=== PATIENT | male | born 1945 | race Caucasian/White ===

== ENCOUNTER 2019-01-02 10:21 | Inpatient (IN) ==
[2019-01-02] MEDS ORDERED: CeFAZolin Syr 3,000MG/30 ML 3,000 MG/30 ML SYRINGE IVPB ONE (10:46)
[2019-01-02] MEDS ORDERED: Albuterol 2.5 MG/3 ML NEBULIZER IH ONE ×2 (10:46→11:20)
[2019-01-02] MEDS ORDERED: Ringers Solution, Lactated 1,000 ML IVC SCH ×2 (11:00→15:28)
[2019-01-02] MEDS ORDERED: Acetaminophen IV 1,000 MG/100 ML INFUS..BTL IVPB ONE (11:20)
[2019-01-02] MEDS ORDERED: *HR* OxyCODONE Immed Rel 5 MG TABLET PO PRN ×2 (11:20→15:28)
[2019-01-02] MEDS ORDERED: *HR* Propofol 200 MG/20 ML VIAL IVP ONE (11:46)
[2019-01-02] MEDS ORDERED: Lidocaine -MPF 2% 2 ML VIAL ONE (11:47)
[2019-01-02] MEDS ORDERED: *HR* FentaNYL (PF) 100 MCG/2 ML VIAL ONE (11:47)
[2019-01-02] MEDS ORDERED: *HR* Midazolam HCl 2 MG/2 ML VIAL ONE (11:47)
[2019-01-02] MEDS ORDERED: *HR* Succinylcholine 200 MG/10 ML VIAL IVP ONE (12:06)
[2019-01-02] MEDS ORDERED: Ropivacaine/PF 0.5% 30 ML VIAL ONE (12:19)
[2019-01-02] MEDS ORDERED: Lidocaine -MPF 2% 5 ML VIAL ONE (12:19)
[2019-01-02] MEDS ORDERED: ROPIVACAINE/PF/NS 0.25% 1 EACH SYRINGE INTRAART ONE (12:19)
[2019-01-02] MEDS ORDERED: Ethanol\\Acetic Acid\\Na Ace\\Ben 1,000 ML IRRIG.SOLN IR ONE (12:41)
[2019-01-02] MEDS ORDERED: Dexamethasone 4 MG/ML VIAL ONE (13:25)
[2019-01-02] MEDS ORDERED: Ondansetron 4 MG/2 ML VIAL ONE (13:25)
[2019-01-02 14:44] LABS: Hematocrit 40.1 % (37.5-50.1); Hemoglobin 13.6 g/dL (12.9-16.9)
[2019-01-02] MEDS ORDERED: Ondansetron 4 MG/2 ML VIAL IVP PRN (15:28)
[2019-01-02] MEDS ORDERED: NON-FORMULARY MEDICATION 1 EACH EACH (Pirfenidone [Esbriet] 801 MG) PO SCH (15:28)
[2019-01-02] MEDS ORDERED: Artificial Tears SOLN 15 ML BOTTLE BOTH EYES PRN (15:28)
[2019-01-02] MEDS ORDERED: Naloxone 0.4 MG/ML INJ IVP PRN (15:28)
[2019-01-02] MEDS ORDERED: *HR* OxyCODONE/APAP 5/325 TABLET PO PRN (15:28)
[2019-01-02 18:00] VITALS: BP 154/80
[2019-01-02] MEDS ORDERED: ceFAZolin sodium 3,000 MG in 0.9 % Sodium Chloride 100 ML IVPB SCH (18:00)
[2019-01-02] MEDS ORDERED: *HR* Enoxaparin 30 MG/0.3 ML SYRINGE SQ SCH ×2 (18:00)
[2019-01-02] MEDS ORDERED: Famotidine 20 MG TABLET PO SCH (21:00)
[2019-01-02] MEDS ORDERED: NON-FORMULARY MEDICATION 1 EACH EACH (C,E,Zinc,Copper 11/Omega3s/Lut [Ocuvite Adult 50 Plu PO SCH (21:00)
[2019-01-02] MEDS ORDERED: Gabapentin 400 MG CAPSULE PO SCH (21:00)
[2019-01-02] MEDS ORDERED: MOM Conc 10 ML UD.LIQ PO PRN (21:00)
[2019-01-02] MEDS ORDERED: NON-FORMULARY MEDICATION 1 EACH EACH (Gabapentin [Neurontin] 600 MG) PO SCH (21:00)
[2019-01-02] MEDS ORDERED: *HR* Acetylcysteine 20% 600 MG/3 ML ORAL SYRINGE PO SCH (21:00)
[2019-01-02] MEDS ORDERED: Sennosides 8.6 MG TABLET PO PRN (21:00)
[2019-01-02] MEDS ORDERED: Temazepam 15 MG CAPSULE PO PRN (21:00)
[2019-01-03] MEDS ORDERED: tiZANidine 4 MG TABLET PO SCH (09:00)
[2019-01-03] MEDS ORDERED: Venlafaxine XR (24 HR) 75 MG CAP.ER.24H PO SCH (09:00)
[2019-01-03] MEDS ORDERED: NON-FORMULARY MEDICATION 1 EACH EACH (Ipratropium Bromide 1 SPR) NS SCH (09:00)
[2019-01-03] MEDS ORDERED: amLODIPine 5 MG TABLET PO SCH (09:00)
[2019-01-03] MEDS ORDERED: Fluticasone Propionate Nasal 50 MCG/SPRAY BOTTLE NS SCH (09:00)
[2019-01-08] MEDS ORDERED: Ergocalciferol (VIT D2) 50,000 UNIT (1.25MG) CAP PO SCH (09:00)
== END 2019-01-02 19:45 | disposition home or self-care (01) | DRG 483 ==
LOC: SAMDAY 10:21 → 3NENU 15:25
PROVIDERS: ADMIT Orthopaedic Surgery; ATTEND Orthopaedic Surgery